=== PATIENT | male | born 1965 | race Hispanic/Latino ===

== ENCOUNTER 2017-04-22 09:52 | Emergency (ER) | payer OTHER ==
[2017-04-22 10:00] VITALS: RESP 18; TEMP 98.2; O2SAT 97; BMI 29.8
[2017-04-22 10:45] VITALS: BP 130/82; PULSE 82
--- NOTE | 2017-04-22 11:17 | ED PDOC ---
Arrival/HPI - General Chief Complaint: Lower Extremity Problem/Injury Time Seen by Provider: 04/22/17 10:12 Historian: Patient - History of Present Illness Narrative History of Present Illness (Text): 04/22/17 10:12 A 52 year old male, whose past medical history includes hypertension, was brought in by EMS presents to the emergency department complaining of lower back pain prior to arrival. 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 While doing so, patient hurt his back and felt sharp pain. Patient denies of any nausea, vomiting, or any other complaints. Also, patient states he will call someone to pick him up from ER. No incontinence or saddle anesthesia. PMD: Dr. Hlal Time/Duration: Prior to Arrival Symptom Onset: Sudden Symptom Course: Unchanged Context: Work Past Medical History - Provider Review Nursing Documentation Reviewed: Yes - Infectious Disease Hx of Infectious Diseases: None - Cardiac Hx Cardiac Disorders: Yes Hx Hypertension: Yes - Pulmonary Hx Respiratory Disorders: No - Neurological Hx Alzheimer's Disease: No - HEENT Hx Blind: No - Renal Hx Pyelonephritis: No - Hematological/Oncological Hx Hepatitis C: No - Integumentary Hx Squamous Cell Carcinoma: No - Musculoskeletal/Rheumatological Hx Arthritis: No - Gastrointestinal Hx Colitis: No - Genitourinary/Gynecological Hx Genitourinary Disorders: No - Psychiatric Hx Psychophysiologic Disorder: No Hx Substance Use: No - Anesthesia Hx Anesthesia: No Family/Social History - Physician Review Nursing Documentation Reviewed: Yes Family/Social History: No Known Family HX Smoking Status: Never Smoked Hx Alcohol Use: No Hx Substance Use: No Allergies/Home Meds Allergies/Adverse Reactions: Allergies No Known Allergies Allergy (Verified 04/22/17 09:59) Review of Systems - Physician Review All systems were reviewed & negative as marked: Yes - Review of Systems Gastrointestinal: absent: Nausea, Vomiting Musculoskeletal: Back Pain (lower back pain), Other (muscle spasms) Physical Exam Vital Signs Reviewed: Yes Vital Signs Temp Pulse Resp BP Pulse Ox 04/22/17 10:43 82 18 130/82 97 04/22/17 09:59 98.2 F 90 18 129/87 97 Temperature: Afebrile Blood Pressure: Normal Pulse: Regular Respiratory Rate: Other Appearance: Positive for: Well-Appearing Pain Distress: None Mental Status: Positive for: Alert and Oriented X 3 - Systems Exam Head: Present: Atraumatic, Normocephalic Pupils: Present: PERRL Extroacular Muscles: Present: EOMI Conjunctiva: Present: Normal Mouth: Present: Moist Mucous Membranes Neck: Present: Normal Range of Motion Respiratory/Chest: Present: Clear to Auscultation, Good Air Exchange. No: Respiratory Distress, Accessory Muscle Use Cardiovascular: Present: Regular Rate and Rhythm, Normal S1, S2. No: Murmurs Abdomen: Present: Normal Bowel Sounds. No: Tenderness, Distention, Peritoneal Signs Back: Present: Paraspinal Tenderness (T-12, L-1) Upper Extremity: Present: Normal Inspection. No: Cyanosis, Edema Lower Extremity: Present: Normal Inspection. No: Edema Neurological: Present: GCS=15, CN II-XII Intact, Speech Normal Skin: Present: Warm, Dry, Normal Color. No: Rashes Psychiatric: Present: Alert, Oriented x 3, Normal Insight, Normal Concentration Medical Decision Making ED Course and Treatment: 04/22/17 10:16 Impression: 52 year old male with lower back pain. Physical exam shows T-12, L- 1 paraspinal tenderness. DDx: Back Strain Plan: -- Flexeril -- Motrin -- Reassess and disposition Progress Notes: 04/22/2017 10:43 On re-evaluation, patient feels better and is in no acute distress. I have discussed the results and plan with the patient, who expresses understanding. Patient in agreement with plan to be discharged home. Patient is stable for discharge. Patient was instructed to follow up with physician or return if symptoms worsen or new concerning symptoms arise. - Medication Orders Current Medication Orders: Discontinued Medications Cyclobenzaprine HCl (Flexeril) 10 mg PO STAT STA Stop: 04/22/17 10:17 Last Admin: 04/22/17 10:24 Dose: 10 mg Ibuprofen (Motrin Tab) 600 mg PO STAT STA Stop: 04/22/17 10:17 Last Admin: 04/22/17 10:23 Dose: 600 mg - Scribe Statement The provider has reviewed the documentation as recorded by the Jeromy Wells Provider Scribe Attestation: All medical record entries made by the Huiibrenetta were at my direction and personally dictated by me. I have reviewed the chart and agree that the record accurately reflects my personal performance of the history, physical exam, medical decision making, and the department course for this patient. I have also personally directed, reviewed, and agree with the discharge instructions and disposition. Disposition/Present on Arrival - Present on Arrival Any Indicators Present on Arrival: No History of DVT/PE: No History of Uncontrolled Diabetes: No Urinary Catheter: No History of Decub. Ulcer: No History Surgical Site Infection Following: None - Disposition Have Diagnosis and Disposition been Completed?: Yes Diagnosis: Low back strain Disposition: HOME/ ROUTINE Disposition Time: 10:43 Patient Plan: Discharge Condition: IMPROVED Discharge Instructions (ExitCare): Acute Low Back Pain (ED) Additional Instructions: Mr Juarez, thank you for letting us take care of you today. Your provider was Dr. Beltran. You were treated for Back Strain. The emergency medical care you received today was directed at your acute symptoms. If you were prescribed any medication, please fill it and take as directed. It may take several days for your symptoms to resolve. Return to the Emergency Department if your symptoms worsen, do not improve, or if you have any other problems. Please contact your doctor or call one of the physicians/clinics you have been referred to that are listed on the Patient Visit Information form that is included in your discharge packet. Bring any paperwork you were given at discharge with you along with any medications you are taking to your follow up visit. Our treatment cannot replace ongoing medical care by a primary care provider (PCP) outside of the emergency department. Thank you for allowing the [facility] team to be part of your care today. If you had an X-Ray or CT scan: A Radiologist will review the ED reading if any change in treatment is needed we will contact you. If you had a blood, urine, or wound culture: It will take several days for the results, if any change in treatment is needed we will contact you. If you had an STI test: It will take 48 hours for the results. Please call after 1 week if you have not heard back. Prescriptions: Cyclobenzaprine [Flexeril] 5 mg PO TID PRN #20 tab PRN Reason: Muscle Spasm Ibuprofen [Motrin] 600 mg PO Q6 PRN #30 tab PRN Reason: Pain, Moderate (4-7) Referrals: [facility], [Non-Staff] - Follow up with primary Forms: [employer] (Korean), WORK NOTE
== END 2017-04-22 10:43 | disposition home or self-care (01) ==
LOC: ED 09:52
DX: S39.012A Strain of muscle, fascia and tendon of lower back, initial encounter (principal); X50.0XXA Overexertion from strenuous movement or load, initial encounter; Y93.89 Activity, other specified; Y92.008 Other place in unspecified non-institutional (private) residence as the place of occurrence of the external cause

== ENCOUNTER 2018-12-09 17:05 | Emergency (ER) | payer OTHER ==
[2018-12-09 17:09] VITALS: BMI 27.0
[2018-12-09 17:12] VITALS: TEMP 97.8
[2018-12-09 18:02] LABS: VENOUS BLOOD GAS BASE EXCESS 3.3 mmol/L (0.0-2.0); VENOUS BLOOD GAS PO2 50 mm/Hg (30-55); VENOUS BLOOD PH 7.44 (7.32-7.43)
--- NOTE | 2018-12-09 18:06 | RAD ---
Date of service: 12/09/2018 HISTORY: SOB COMPARISON: No prior. FINDINGS: LUNGS: The lungs are well inflated and clear. PLEURA: No pleural effusions or pneumothorax. CARDIOVASCULAR: The heart is normal in size. No aortic atherosclerotic calcifications present. OSSEOUS STRUCTURES: Within normal limits for the patient's age. VISUALIZED UPPER ABDOMEN: Normal. OTHER FINDINGS: None. IMPRESSION: No active pulmonary disease.
[2018-12-09 18:22] LABS: ALB/GLOB RATIO 1.3 (1.1-1.8); ALBUMIN 4.4 g/dL (3.0-4.8); ALT/SGPT 38 U/L (7-56); AST/SGOT 38 U/L (17-59); BLOOD UREA NITROGEN 14 mg/dL (7-21); CALCIUM 9.6 mg/dL (8.4-10.5); GFR NON-AFRICAN AMERICAN > 60
[2018-12-09 18:31] LABS: BARBITURATES, UR NEGATIVE (NEGATIVE); PH,URINE 6.5 (4.7-8.0); URINE BILIRUBIN NEGATIVE (NEGATIVE); URINE BLOOD NEGATIVE (NEGATIVE); URINE GLUCOSE (UA) NEGATIVE (NEGATIVE); URINE LEUKOCYTE ESTERASE NEGATIVE Leu/uL (NEGATIVE); URINE PROTEIN NEGATIVE mg/dL (<30 mg/dL); URINE UROBILINOGEN 0.2 E.U./dL (<1 E.U./dL)
[2018-12-09 18:32] LABS: BASO # 0.06 K/mm3 (0.0-2.0); BASO % 0.6 % (0.0-3.0); EOS # 0.2 (0.0-0.7); EOS % 1.5 % (1.5-5.0); HEMOGLOBIN 15.5 g/dL (14.0-18.0); LYMPH # 2.8 (1.2-3.4); LYMPH % 27.8 % (22.0-35.0); MEAN CELL VOLUME 87.4 fl (80.0-105.0); MEAN CORPUSCULAR HEMOGLOBIN 30.5 pg (25.0-35.0); MEAN CORPUSCULAR HGB CONC 34.9 g/dl (31.0-37.0); MEAN PLATELET VOLUME 10.1 fl (7.0-11.0); MONO # 0.5 (0.1-0.6); MONO % 5.3 % (1.0-6.0); RBC 5.08 10^6/uL (3.5-6.1); RED CELL DISTRIBUTION WIDTH 12.4 % (11.5-14.5); WHITE BLOOD COUNT 9.9 10^3/uL (4.5-11.0)
[2018-12-09 18:35] LABS: INR 1.05; PARTIAL THROMBOPLASTIN TIME 31.8 Seconds (26.9-38.3); PROTHROMBIN TIME 11.7 SECONDS (9.4-12.5); URINE APPEARANCE CLEAR (CLEAR); URINE COLOR YELLOW (YELLOW)
--- NOTE | 2018-12-09 18:35 | ED PDOC ---
Arrival/HPI - General Chief Complaint: Shortness Of Breath Time Seen by Provider: 12/09/18 17:20 Historian: Patient - History of Present Illness Narrative History of Present Illness (Text): 12/10/18 04:08 53 y/o male with PMH of HTN presents to the ED c/o dizziness and dyspnea on exertion x 1 month. Pt states that when he is walking he occasionally experiences episodes of shortness of breath and lightheadedness that lasts a few seconds and resolves on its own. Denies fever, chills, chest pain, abdominal pain, nausea, vomiting, palpitations, cough, headache, vision changes, or any other associated symptoms. Past Medical History - Provider Review Nursing Documentation Reviewed: Yes - Infectious Disease Hx of Infectious Diseases: None - Cardiac Hx Cardiac Disorders: Yes Hx Hypertension: Yes - Pulmonary Hx Respiratory Disorders: No - Neurological Hx Alzheimer's Disease: No - HEENT Hx Blind: No - Renal Hx Pyelonephritis: No - Hematological/Oncological Hx Hepatitis C: No - Integumentary Hx Squamous Cell Carcinoma: No - Musculoskeletal/Rheumatological Hx Arthritis: No - Gastrointestinal Hx Colitis: No - Genitourinary/Gynecological Hx Genitourinary Disorders: No - Psychiatric Hx Psychophysiologic Disorder: No Hx Substance Use: No - Anesthesia Hx Anesthesia: No Family/Social History - Physician Review Nursing Documentation Reviewed: Yes Family/Social History: No Known Family HX Smoking Status: Former Smoker Hx Alcohol Use: No Hx Substance Use: No Allergies/Home Meds Allergies/Adverse Reactions: Allergies No Known Allergies Allergy (Verified 12/09/18 17:09) Review of Systems - Review of Systems Constitutional: Normal. absent: Fatigue, Fevers Eyes: Normal. absent: Vision Changes ENT: Normal. absent: Sore Throat, Sinus Congestion Respiratory: SOB. absent: Cough Cardiovascular: Normal. absent: Chest Pain, Palpitations, Syncope Gastrointestinal: Normal. absent: Abdominal Pain, Nausea, Vomiting Genitourinary Male: Normal. absent: Dysuria, Frequency Musculoskeletal: Normal. absent: Back Pain, Neck Pain Skin: Normal. absent: Rash Neurological: Dizziness. absent: Headache, Focal Weakness, Gait Changes Physical Exam Vital Signs Reviewed: Yes Vital Signs Temp Pulse Resp BP Pulse Ox 12/09/18 17:30 20 96 12/09/18 17:11 97.8 F 98 H 18 158/93 H 98 Temperature: Afebrile Blood Pressure: Normal Pulse: Regular Respiratory Rate: Normal Appearance: Positive for: Well-Appearing, Non-Toxic, Comfortable Pain Distress: None Mental Status: Positive for: Alert and Oriented X 3 - Systems Exam Head: Present: Atraumatic, Normocephalic Pupils: Present: PERRL Extroacular Muscles: Present: EOMI Conjunctiva: Present: Normal Mouth: Present: Moist Mucous Membranes Neck: Present: Normal Range of Motion. No: Meningeal Signs, Paraspinal Tenderness Respiratory/Chest: Present: Clear to Auscultation, Good Air Exchange. No: Respiratory Distress, Accessory Muscle Use Cardiovascular: Present: Regular Rate and Rhythm, Normal S1, S2. No: Peripheal Pulses Present Abdomen: Present: Normal Bowel Sounds. No: Tenderness, Distention, Peritoneal Signs, Rebound, Guarding Back: Present: Normal Inspection. No: CVA Tenderness Upper Extremity: Present: Normal Inspection, Normal ROM, NORMAL PULSES, Neurovascularly Intact, Capillary Refill < 2s. No: Cyanosis, Edema, Temperature Abnormalties Lower Extremity: Present: Normal Inspection, NORMAL PULSES, Normal ROM, Neurovascularly Intact, Capillary Refill < 2 s. No: Edema, Temperature Abnormalties Neurological: Present: GCS=15, CN II-XII Intact, Speech Normal, Motor Func Grossly Intact, Normal Sensory Function, Gait Normal Skin: Present: Warm, Dry, Normal Color. No: Rashes Psychiatric: Present: Alert, Oriented x 3, Normal Insight, Normal Concentration, Normal Affect, Normal Mood Medical Decision Making ED Course and Treatment: Initial Plan: * CBC, CMP * Coags * BNP, Troponin, Dimer * EKG * CXR * Head CT * Orthostatics * IVF EKG 97; NSR; No STEMI, nonspecific ST/T wave changes Bloodwork reviewed, unremarkable. Troponin, Dimer, BNP negative Head CT unremarkable Offered patient inpatient observation for further evaluation of dizziness and dyspnea on exertion to rule out ACS or carotid disease. Pt refuses admission, would like to go home. Educated patient on risks of leaving AMA, patient continues to want to leave. Advised to followup with his PMD and cardiology tomorrow. 21:05 The patient is choosing to leave against medical advice. I have personally explained to the patient that choosing to do so may result in permanent bodily harm, disability, or . I have discussed at great length that without further evaluation and monitoring there may be unforeseen circumstances and/or deterioration causing permanent bodily harm or as a result of their choice. The patient is alert, oriented, and shows the mental capacity to make c lear decisions regarding the patients health care at this time. The patient continues to wish to leave against medical advice. In light of the patients decision to leave against medical advice, follow-up has been arranged and the patient is aware of the importance to following up as instructed. The patient has been advised that they should return to the emergency room immediately if they change their mind at any time, or if their condition begins to change or worsen in any way. - Lab Interpretations Lab Results: pO2 50 mm/Hg (30-55) 12/09/18 17:50 VBG pH 7.44 (7.32-7.43) H 12/09/18 17:50 VBG pCO2 41.0 (40-60) 12/09/18 17:50 VBG HCO3 27.8 mmol/l (21-28) 12/09/18 17:50 VBG Total CO2 29.1 mmol.L (22-28) H 12/09/18 17:50 VBG O2 Sat (Calc) 91.0 % (40-65) H 12/09/18 17:50 VBG Base Excess 3.3 mmol/L (0.0-2.0) H 12/09/18 17:50 VBG Potassium 3.3 mmol/L (3.6-5.2) L 12/09/18 17:50 Sodium 138.0 mmol/L (132-148) 12/09/18 17:50 Chloride 102.0 mmol/L (98-107) 12/09/18 17:50 Glucose 102 mg/dl (75-110) 12/09/18 17:50 Lactate 1.8 mmol/L (0.7-2.1) 12/09/18 17:50 FiO2 21.0 % 12/09/18 17:50 Total Bilirubin 0.4 mg/dL (0.2-1.3) 12/09/18 18:04 AST 38 U/L (17-59) 12/09/18 18:04 ALT 38 U/L (7-56) 12/09/18 18:04 Alkaline Phosphatase 81 U/L (38-126) 12/09/18 18:04 Total Protein 7.8 g/dL (5.8-8.3) 12/09/18 18:04 Albumin 4.4 g/dL (3.0-4.8) 12/09/18 18:04 Globulin 3.4 gm/dL 12/09/18 18:04 Albumin/Globulin Ratio 1.3 (1.1-1.8) 12/09/18 18:04 12/09/18 18:04 12/09/18 18:04 Lab Results 12/09/18 18:04: Urine Opiates Screen Negative, Urine Methadone Screen Negative, Ur Barbiturates Screen Negative, Ur Phencyclidine Scrn Negative, Ur Amphetamines Screen Negative, U Benzodiazepines Scrn Negative, U Oth Cocaine Metabols Negative, U Cannabinoids Screen Negative 12/09/18 18:04: Urine Color Yellow, Urine Appearance Clear, Urine pH 6.5, Ur Specific [place] 1.015, Urine Protein Negative, Urine Glucose (UA) Negative, Urine Ketones Negative, Urine Blood Negative, Urine Nitrate Negative, Urine Bilirubin Negative, Urine Urobilinogen 0.2, Ur Leukocyte Esterase Negative 12/09/18 18:04: PT 11.7, INR 1.05, APTT 31.8, D-Dimer, Quantitative < 200 12/09/18 18:04: Sodium 140, Chloride 102, Potassium 3.6, Carbon Dioxide 27, Anion Gap 14, BUN 14, Creatinine 0.8, Est GFR ( Amer) > 60, Est GFR (Non- Af Amer) > 60, Random Glucose 94, Calcium 9.6, Magnesium 2.0, Total Bilirubin 0. 4, AST 38, ALT 38, Alkaline Phosphatase 81, Lactate Dehydrogenase 488, Total Creatine Kinase 468 H, CK-MB (CK-2) 5.8 H, CK-MB (CK-2) % 1.2 L, Troponin I < 0.01, NT-Pro-B Natriuret Pep 41.8, Total Protein 7.8, Albumin 4.4, Globulin 3.4, Albumin/Globulin Ratio 1.3 12/09/18 18:04: WBC 9.9, RBC 5.08, Hgb 15.5, Hct 44.4, MCV 87.4, MCH 30.5, MCHC 34.9, RDW 12.4, Plt Count 265, MPV 10.1, Neut % (Auto) 64.8, Lymph % (Auto) 27.8, [place] % (Auto) 5.3, Eos % (Auto) 1.5, Baso % (Auto) 0.6, Lymph # (Auto) 2.8, [place] # (Auto) 0.5, Eos # (Auto) 0.2, Baso # (Auto) 0.06, Absolute Neuts (auto) 6.42 12/09/18 17:50: pO2 50, VBG pH 7.44 H, VBG pCO2 41.0, VBG HCO3 27.8, VBG Total CO2 29.1 H, VBG O2 Sat (Calc) 91.0 H, VBG Base Excess 3.3 H, VBG Potassium 3.3 L , Sodium 138.0, Chloride 102.0, Glucose 102, Lactate 1.8, FiO2 21.0, Venous Blood Potassium 3.3 L I have reviewed the lab results: Yes - RAD Interpretation Narrative RAD Interpretations (Text): 12/09/18 18:43 Portable CXR: FINDINGS: LUNGS: The lungs are well inflated and clear. PLEURA: No pleural effusions or pneumothorax. CARDIOVASCULAR: The heart is normal in size. No aortic atherosclerotic calcifications present. OSSEOUS STRUCTURES: Within normal limits for the patient's age. VISUALIZED UPPER ABDOMEN: Normal. OTHER FINDINGS: None. IMPRESSION: No active pulmonary disease. Radiology Orders: 12/09/18 17:28 CHEST PORTABLE [RAD] Stat 12/09/18 17:31 HEAD W/O CONTRAST [CT] Stat [employer]er: Radiologist - EKG Interpretation EKG Interpretation (Text): 12/09/18 18:32 Rate 97; Normal Intervals; Normal axis; No STEMI, nonspecific ST/T wave changes Interpreted by ED Physician: Yes Type: 12 lead EKG Disposition/Present on Arrival - Present on Arrival Any Indicators Present on Arrival: No History of DVT/PE: No History of Uncontrolled Diabetes: No Urinary Catheter: No History of Decub. Ulcer: No History Surgical Site Infection Following: None - Disposition Have Diagnosis and Disposition been Completed?: No Diagnosis: Left against medical advice, SOB (shortness of breath), Dizziness Disposition: AGAINST MEDICAL ADVICE Disposition Time: 21:05 Condition: GUARDED Discharge Instructions (ExitCare): Shortness of Breath (Dyspnea) (DC), Leaving Against Medical Advice Additional Instructions: RETURN TO ER IF YOU WISH TO BE REEVALUATED OR IF NEW/WORSENING SYMPTOMS APPEAR Followup with your primary doctor tomorrow Followup with cardiology within 2 days Return to ER with any new/worsening symptoms Referrals: [facility] [place] - Follow up with primary Dea Ludwig MD [Staff Provider] - Follow up with primary Claudia Roy MD [Medical Doctor] - Follow up with primary Forms: [employer] (Lithuanian)
[2018-12-09 18:36] LABS: BENZODIAZEPINES, UR NEGATIVE (NEGATIVE); OPIATES, UR NEGATIVE (NEGATIVE); PHENCYCLIDINE, UR NEGATIVE (NEGATIVE)
[2018-12-09 18:39] LABS: D DIMER < 200 ng/mlDDU (0-243)
[2018-12-09 18:40] LABS: B-TYPE NATRIURETIC PEPTIDE 41.8 pg/mL (0-450); TROPONIN I < 0.01 ng/mL
[2018-12-09] MEDS ORDERED: Sodium Chloride 0.9% 1,000 ML IV STA (18:47)
[2018-12-09 18:51] LABS: CK MB% 1.2 % (2.5-3.0); CK-MB 5.8 ng/mL (0.0-3.6)
[2018-12-09 21:06] VITALS: BP 155/81; PULSE 81; RESP 16; O2SAT 99
--- NOTE | 2018-12-09 21:13 | CARD ---
APPROVED REPORT Date of service: 12/09/2018 EKG Measurement Heart [id number] <Conclusion> Normal sinus rhythm Minor NDSTT abnormalities [place] ECG
--- NOTE | 2018-12-10 08:29 | CT ---
Date of service: 12/09/2018 PROCEDURE: CT HEAD WITHOUT CONTRAST. HISTORY: headache COMPARISON: None available. TECHNIQUE: Axial computed tomography images were obtained through the head/brain without intravenous contrast. Radiation dose: Total exam DLP = 926.67 mGy-cm. This CT exam was performed using one or more of the following dose reduction techniques: Automated exposure control, adjustment of the mA and/or kV according to patient size, and/or use of iterative reconstruction technique. FINDINGS: HEMORRHAGE: No intracranial hemorrhage. BRAIN: No mass effect or edema. No atrophy or chronic microvascular ischemic changes. VENTRICLES: Unremarkable. No hydrocephalus. CALVARIUM: Unremarkable. PARANASAL SINUSES: Unremarkable as visualized. No significant inflammatory changes. MASTOID AIR CELLS: Unremarkable as visualized. No inflammatory changes. OTHER FINDINGS: The report concurs with the preliminary [facility] report IMPRESSION: Normal CT of the Head.
== END 2018-12-09 21:05 | disposition left against medical advice (07) ==
LOC: ED 17:05
DX: R06.02 Shortness of breath (principal); R42 Dizziness and giddiness; I10 Essential (primary) hypertension; Z87.891 Personal history of nicotine dependence
CPT/HCPCS: 70450; 71045; 80053; 80324; 80345; 80346; 80349; 80353; 80358; 80361; 81003; 82550; 82553; 82803; 83615; 83735; 83880; 83992; 84484; 85025; 85378; 85610; 85730; 93005; 96360; 99285; J7030